=== PATIENT | male | born 1990 | race Caucasian/White ===

== ENCOUNTER → 2017-12-17 | Outpatient (CLI) | payer BC ==
--- NOTE | 2017-12-18 06:21 | MR ---
EXAMINATION TYPE: MR lumbar spine wo con DATE OF EXAM: 12/17/2017 COMPARISON: Prior MRI lumbar spine May 28, 2013. HISTORY: Low back pain for several years with pain radiating into right buttocks per patient. Bulging disc, DDD, and radiculopathy all per order. TECHNIQUE: Multiplanar, multisequence imaging of the lumbar spine is performed without IV contrast. FINDINGS: Sagittal images of the lumbar spine show vertebral body heights and alignment to appear sat isfactory. The intervertebral discs demonstrate normal heights and hydration. No suspicious posterior disc herniations are seen on sagittal images The conus medullaris is slightly lower in position end ing superior L2 level. No suspicious signal is seen. No suspicious clumping of lumbosacral nerve root s is noted. The bone marrow signal intensity is within normal limits. No significant spurring is pres ent. Axial images show no new focal disc disease, or facet degenerative change at any lumbar level. There is no spinal canal stenosis, neural foraminal narrowing, or evidence of nerve root compromise. No noble spicious incidental retroperitoneal findings are seen. Tiny central disc protrusion L5-S1 level axial image 3 is redemonstrated without spinal canal effacement or neural foraminal narrowing. IMPRESSION: No significant new disc herniation identified to account for patient's symptoms. No signi ficant change from prior MRI.
== END | disposition home or self-care (01) ==
LOC: RADMRIMAIN 21:29
PROVIDERS: ATTEND Family Medicine
DX: M54.16 Radiculopathy, lumbar region (principal)
CPT/HCPCS: 72148